=== PATIENT | male | born 1990 | race Caucasian/White ===

== ENCOUNTER 2019-03-12 13:04 | Emergency (ER) | payer SELFPAY ==
[2019-03-12 13:16] VITALS: BP 130/95; PULSE 70; RESP 16; TEMP 37.1; O2SAT 99
--- NOTE | 2019-03-12 13:52 | ED.GENADUL_ITS ---
Discharge Plan Disposition Patient Disposition: HOME Condition: Improving Discharge Details Chief Complaint: Headache Clinical Impression: Headache Primary Care Provider: None,None ED Provider: Stanley Shanks Home Meds and New Rx's Prescriptions: No Action ibuprofen 600 MG tablet 600 mg PO QID PRN (Reason: PAIN) Qty: 40 RF: 0 Discharge Instructions Instructions: General Headache (ED) Additional Instructions: Please purchase [id number] Excedrin Migraine headache medication and take as directed on package. Please stay well-hydrated and you may also take Benadry l 50 mg (2 tablets) half hour before bed to aid with sleep. Return immediately to the emergency department if you develop a fever, neck pain, worsening symptoms or any further concerns. Stand Alone Forms: Work Release Referrals: [facility] Emergency Dept. [Outside] (As needed for reassessment or if not improved) Discharge Data Discharge Date/Time-TO BE ENTERED AT DEPARTURE: 03/12/19 15:10 Medical Decision Making Patient presenting to the emergency department for chief complaint of headache. Patient states that this started on and was not a sudden onset but more a gradual increase of headache. Patient does state that he has had similar headaches like this in the past but none that have lasted this long. Patient denies any injury or trauma, fever chills, or focal neurological deficits. Physical exam is reassuring showing no acute abnormalities on exam and otherwise healthy stable patient with no acute signs of distress. Plan on giving IV fluids, ketorolac, Benadryl and Compazine and reassessing. Patient was reassessed after completion of treatment and stated significant improvement of symptoms and that he wants to go home now. Patient again has no focal neurological deficits and no red flag warning signs so I feel that this is appropriate. Return precautions were discussed. After discussion of diagnosis and plan of care patient has no further needs, questions, or concerns and states clear understanding to return to the emergency department for any worsening symptoms. HPI General Mode of arrival: ambulatory . Date/Time Provider Initiated Documentation: 03/12/19 13:17 . Limitations to Documentation: no limitations . Information obtained by: patient and RN notes reviewed . History of Present Illness 28 year old M presents to the emergency department with the chief complaint of headache, described as similar to prior episodes, with intensity rated at >10. Quality is described as aching and sharp, and is localized to the head. Patient reports no radiation. Patient started experiencing this day(s) (4) and it has been constant. No relieving factors improve symptom(s), No exacerbating factors reported . Patient did receive the following treatments prior to arrival, NSAID Related Data Home Medications Medication Instructions Recorded Confirmed ibuprofen 600 mg PO QID PRN #40 tab 04/09/15 03/12/19 Previous Rx's Medication Instructions Recorded ibuprofen 600 mg PO QID PRN #40 tab 04/09/15 Allergies Allergy/AdvReac Type Severity Reaction Status Date / Time Penicillins Allergy Unknown Unverified 03/12/19 13:21 General Stated Complaint: Headache LUKE: 3 Review of Systems Constitutional Denies body ache(s), Denies chills, Denies fever(s) and Reports headache(s) Eyes Denies change in vision and Reports photophobia ENT Denies vertigo, Reports headache(s), Denies nasal congestion and Denies sinus pain Cardiovascular Denies chest pain and Denies syncope Gastrointestinal Reports nausea and Reports vomiting Neurologic Reports as per HPI, Denies confusion, Denies vertigo, Denies syncope, Reports headache(s), Denies focal weakness and Denies sensory deficit Psychiatric Denies confusion [facility] Social History Smoking/Tobacco Use Status: Current every day Drug use: Occasionally Do you feel safe in your relationship?: Yes Exam Const General: cooperative, healthy appearing, no acute distress and well groomed Orientation: alert, awake and oriented x3 HENMT Head: normal to inspection Ears: hearing grossly normal bilaterally and TM's normal bilaterally Mouth: oral mucosae normal and moist mucous membranes Throat: posterior oropharynx normal Eyes Visual Bunch: normal visual bunch by confrontation Alignment and Position: alignment normal Periorbital: periorbital findings normal Eyelids: eyelids normal Sclera: sclerae normal Cornea: corneas normal Pupils: PERRL EOM: EOM intact bilaterally Neck Neck: normal visual inspection, full ROM, no lymphadenopathy and no meningeal signs Resp Effort & Inspection: normal respiratory effort and able to speak in complete sentences Auscultation: clear to auscultation bilaterally Cardio Rate: regular rate Rhythm: regular rhythm Heart Sounds: S1 normal and S2 normal Neuro General: alert, awake, oriented x3, gait normal, tone normal, moves all extremities, CN's II-XI intact bilaterally and not confused Cognition: normal cognition Speech: speech normal Motor: muscle tone normal throughout, strength 5/5 throughout, no pronator drift, no movement abnormalities noted and no fasciculations Sensory Exam: no sensory deficits noted Coordination: [id number] test normal, Romberg test normal, Does not sway with eyes open, rapid alternating movement UE normal and rapid alternating movement LE normal Course Vital Signs Temperature 37.1 C 03/12/19 13:16 Pulse 70 03/12/19 13:16 Respiratory Rate 16 03/12/19 13:16 Blood Pressure 130/95 H 03/12/19 13:16 Pulse Oximetry 99 03/12/19 13:16 Temperature 37.1 C 03/12/19 13:16 Temperature Source Temporal Artery Scan 03/12/19 13:16 Pulse 70 03/12/19 13:16 Respiratory Rate 16 03/12/19 13:16 Respiratory Effort 03/12/19 13:23 Blood Pressure 130/95 H 03/12/19 13:16 Blood Pressure Position Sitting 03/12/19 13:16 Pulse Oximetry 99 03/12/19 13:16 Oxygen Delivery Method Room Air 03/12/19 13:16 Oxygen Flow Rate 0 03/12/19 13:16 Pain Level 10 03/12/19 13:25
[2019-03-12] MEDS: Ketorolac 30 MG/ML VIAL IVP (14:04)
[2019-03-12] MEDS: Normal Saline 1,000 ML 1000 ML IV (14:04)
[2019-03-12] MEDS: diphenhydrAMINE 50 MG/ML VIAL 25 MG IVP (14:05)
[2019-03-12] MEDS: Prochlorperazine 10 MG/2 ML VIAL IVP (14:06)
[2019-03-12 14:37] VITALS: BP 126/74; PULSE 57; RESP 16; TEMP 36.7; O2SAT 100
== END 2019-03-12 15:10 | disposition home or self-care (01) ==
PROVIDERS: Emergency Provider Nurse Practitioner Family
DX: R51 Headache (principal)
CPT/HCPCS: 96361; 96374; 96375; 99284; J0780; J1200; J1885

== ENCOUNTER 2020-06-04 15:25 | Outpatient (REF) | payer OTHER, SELFPAY ==
[2020-06-07 14:30] LABS: SARS-CoV-2 RNA Undetected (Undetected); SARS-CoV-2 Specimen Source Nasopharynx
== END 2020-06-04 15:45 ==
LOC: NCHCN 15:25
PROVIDERS: PCP Nurse Practitioner Family; Visit Provider Nurse Practitioner Family
DX: R05 Cough (principal)
CPT/HCPCS: U0003

== ENCOUNTER 2023-10-05 17:25 | Emergency (ER) | payer MEDICAID, SELFPAY ==
[2023-10-05 17:25] VITALS: BP 146/95; PULSE 70; RESP 20; TEMP 36.7; O2SAT 99
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
[2023-10-05 17:57] LABS: Abs Immature Grans 0.09 10^3/uL (0.0-0.06); Absolute Basophil Count 0.07 10^3/uL (0.0-0.2); Absolute Eosinophil Count 0.15 10^3/uL (0.0-0.7); Absolute Lymphocyte Count 1.92 10^3/uL (1.2-3.4); Absolute Monocyte Count 0.88 10^3/uL (0.1-0.8); Absolute Neutrophil Count 10.68 10^3/uL (1.2-6.7); Basophils % 0.5; Eosinophils % 1.1; HCT 46.4 % (40.0-50.0); HGB 16.2 g/dL (13.5-17.5); Immature Grans % 0.7; Lymphocytes % 13.9; MCH 29.2 pg (27.0-33.0); MCHC 34.9 % (32.0-36.0); MCV 84 fL (80-95); MPV 10.6 fL (8.0-11.0); Monocytes % 6.4; Neutrophils % 77.4; Platelet Count 214 10^3/uL (130-400); RBC 5.55 10^6/uL (4.36-5.78); RDW 12.1 % (11.8-14.1)
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
[2023-10-05 18:05] LABS: INR 1.1 (0.9-1.1); PTT Activated 28.6 sec (23.6-32.8)
[2023-10-05] MEDS: Ondansetron 4 MG/2 ML VIAL IVP (18:05)
[2023-10-05] MEDS: Normal Saline 1,000 ML 1000 ML IV (18:06)
[2023-10-05] MEDS: MORPHine 10 MG/ML VIAL 5 MG IVP (18:08)
[2023-10-05 18:09] LABS: ALT 25 U/L (16-63); AST 20 U/L (15-37); Albumin 4.2 g/dL (3.4-5.0); Alkaline Phosphatase 74 U/L (46-116); Amylase 65 U/L (25-115); Anion Gap 10.5 mmol/L (3-11); BUN 15 mg/dL (7-18); Bilirubin, Total 0.3 mg/dL (0.2-1.0); CO2 25.5 mmol/L (21.0-32.0); Chloride 102 mmol/L (98-107); Estimated GFR 102.55 (mL/min/1.73m2); Glucose 88 mg/dL (74-106); Lipase 32 U/L (16-77); Magnesium 1.8 mg/dL (1.8-2.4); Potassium 3.6 mmol/L (3.5-5.1); Sodium 138 mmol/L (136-145); Total Protein 7.8 g/dL (6.4-8.2); Troponin I < 50 ng/L (<or=60)
[2023-10-05 18:11] LABS: ETHANOL BLOOD < 3.0 mg/dL (<10)
[2023-10-05] MEDS: Normal Saline - Diluent 50 ML VIAL IJ (18:23)
[2023-10-05] MEDS: Normal Saline Flush 10 ML SYR IVP (18:25)
[2023-10-05 18:31] LABS: *AMPHETAMINES SCREEN URINE Negative (Negative); *BARBITURATES SCREEN URINE Negative (Negative); *BENZODIAZEPINES SCREEN URINE Negative (Negative); Cannabinoids THC Positive (Negative); Cocaine Screen,Urine Positive (Negative); METHADONE URINE SCREEN Positive (Negative); OPIATES URINE SCREEN Negative (Negative)
[2023-10-05 18:34] LABS: Tricyclic Antidepressants Negative (Negative)
[2023-10-05] MEDS: Omnipaque 350 MG/ML 100 ML BTL IJ (18:42)
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
== END 2023-10-05 20:28 | disposition home or self-care (01) ==
PROVIDERS: Emergency Provider Physician Assistant; PCP Nurse Practitioner Family
DX: S00.81XA Abrasion of other part of head, initial encounter (principal); S06.0X0A Concussion without loss of consciousness, initial encounter; R16.0 Hepatomegaly, not elsewhere classified; V43.62XA Car passenger injured in collision with other type car in traffic accident, initial encounter
CPT/HCPCS: 74177; 80053; 80307; 83690; 86850; 86900; 86901; 96361; 96374; 96375; 99285; 70450; 70486; 71260; 72125; 80320; 82150; 83735; 84484; 85025; 85610; 85730; 99284; J2270; J2405; J3490

== ENCOUNTER 2024-01-12 16:24 | Outpatient (REF) | payer MEDICAID, SELFPAY ==
[2024-01-12 21:35] LABS: Abs Immature Grans 0.06 10^3/uL (0.0-0.06); Absolute Basophil Count 0.05 10^3/uL (0.0-0.2); Absolute Eosinophil Count 0.29 10^3/uL (0.0-0.7); Absolute Lymphocyte Count 3.33 10^3/uL (1.2-3.4); Absolute Monocyte Count 0.54 10^3/uL (0.1-0.8); Basophils % 0.5; Eosinophils % 3.1; HCT 42.7 % (40.0-50.0); Immature Grans % 0.6; Lymphocytes % 35.9; MCHC 35.1 % (32.0-36.0); MCV 83 fL (80-95); Monocytes % 5.8; Neutrophils % 54.1; Platelet Count 193 10^3/uL (130-400); RBC 5.17 10^6/uL (4.36-5.78); RDW 12.6 % (11.8-14.1); RDW-SD 38.5 fL; WBC 9.27 10^3/uL (4.4-10.8)
[2024-01-12 21:46] LABS: ALT 23 U/L (16-63); AST 21 U/L (15-37); Albumin 4.2 g/dL (3.4-5.0); Alkaline Phosphatase 74 U/L (46-116); BUN 13 mg/dL (7-18); Bilirubin, Total 0.2 mg/dL (0.2-1.0); Calcium 8.2 mg/dL (8.5-10.1); Chloride 107 mmol/L (98-107); Estimated GFR 102.55 (mL/min/1.73m2); Glucose 81 mg/dL (74-106); Potassium 3.8 mmol/L (3.5-5.1); Sodium 144 mmol/L (136-145); Total Protein 7.2 g/dL (6.4-8.2)
== END 2024-01-12 16:25 | disposition home or self-care (01) ==
LOC: LBN 16:24
PROVIDERS: Visit Provider Physician Assistant
DX: R56.9 Unspecified convulsions (principal); Z79.899 Other long term (current) drug therapy
CPT/HCPCS: 80053; 83735; 85025

== ENCOUNTER 2024-12-05 14:41 | Emergency (ER) | payer MEDICAID, SELFPAY ==
[2024-12-05 14:43] VITALS: BP 149/85; PULSE 100; RESP 14; TEMP 36.7; O2SAT 98
[2024-12-05 14:45] VITALS: BP 149/85; PULSE 100; RESP 14; TEMP 36.7; O2SAT 98
[2024-12-05] MEDS: Amoxicillin 875/Clav. 125 TAB PO (15:10)
--- NOTE | 2024-12-05 15:37 | ED.GENADUL_ITS ---
Discharge Plan Disposition Patient Disposition: Home Condition: Stable Discharge Details Clinical Impression: Abscess, dental Primary Care Provider: Unknown,Unknown ED Provider: Delaney Dhaliwal Home Meds and New Rx's Prescriptions: New amoxicillin-pot clavulanate 875-125 mg tablet 1 tab PO BID 9 Days Qty: 18 0RF No Action levetiracetam [Keppra] 500 mg tablet 500 mg PO Q12H Qty: 60 1RF methadone 10 mg/mL syringe 90 mg PO DAILY ibuprofen 600 MG tablet 600 mg PO QID PRN (Reason: PAIN) Qty: 40 0RF Discharge Instructions Instructions: Tooth Abscess (DC) Additional Instructions: You were seen in the emergency department today for evaluation of a tooth abscess, which was drained. You were started on antibiotics and need to follow- up at your dental appointment which is scheduled. Reasons to come to the emergency department sooner include fever or chills, inability to open your mouth, swallow, or difficulty breathing, or. Please take all the antibiotics until they are gone, even if you start to feel better. Thank you for allowing us to be part of your care. HPI General Mode of arrival: ambulatory . Date/Time Provider Initiated Documentation: 12/05/24 14:50 . Limitations to Documentation: no limitations . Information obtained by: patient, family and old records reviewed . HPI Narrative: HPI: This is a 34-year-old male patient presenting for evaluation of a dental abscess. The patient reports that for the last 2 days he has noted some swelling and pain in the area of his right upper back molar. He has a known broken tooth in that region, and is scheduled with his dentist in a week and a half to have the tooth treated. He states that he has noted swelling in that area and feels tenderness in the face and lymph nodes on that side, and even had some ear pain today. He has not had a fever, has been able to eat and drink, and states he does not have any other complaints at this time Exam: Gen: Awake and alert, in no apparent distress HEENT: Non-icteric sclera, full EOMs without entrapment or pain. No facial asymmetry appreciated. The patient does have a fluctuant periapical abscess of tooth #2, without spontaneous drainage. The patient has overall poor dentition with numerous dental caries. The pain is worsened with opening his mouth but he does not have any true trismus Neck: Supple. The patient does have some tender submandibular mild lymphadenopathy, full range of motion of the neck Lungs: No apparent respiratory distress, normal respiratory effort. CV: Appears well perfused Abdomen: Non-distended MSK: Moves 4 extremities without apparent limitation in ROM Skin: Visualized skin without rashes, cyanosis. Neuro: Normal Gait, no obvious focal deficits or facial asymmetry. Speaks in full, clear sentences. Psych: Appropriate for situation. MDM: This is a 34-year-old male patient presenting for evaluation of a dental abscess. My differential includes but is not limited to periapical abscess, dental carry disease, I certainly considered deep space infection including RPA, [employer], deep space abscess, and considered systemic infection such as bacteremia or sepsis, though reassuringly this patient has had a brief duration of symptoms, has not identified abscess and does not have any hemodynamic instability or fever. The patient has a documented history of allergy to penicillin, which was reported to be childhood and he does not recall any anaphylactic reactions, is not sure if he got a rash. For this reason I will give him a dose of Augmentin and observe him in the emergency department to ensure no reactions. ED Course: The dental abscess was drained successfully as noted below, patient tolerated the procedure well and did not have any adverse events or allergic reactions to the Augmentin which was provided. At this time I do not see an indication to pursue advanced imaging. I provided the patient with a 10-day course of Augmentin and he will reach out to his dental providers to discuss his upcoming appointments and reevaluation. At this time, the patient has had a full medical evaluation and is safe for discharge to home. They are hemodynamically stable, ambulatory, and tolerating PO. They are understanding of the follow-up plan and return precautions. They left our facility without incident. Delaney Dhaliwal MD Related Data Home Medications ?Medication ?Instructions ?Recorded ?Confirmed ibuprofen 600 mg tablet 600 mg PO QID PRN PAIN #40 tabs 04/09/15 12/05/24 methadone 10 mg/mL oral syringe 90 mg PO DAILY 12/22/22 12/05/24 (FOR ORAL USE ONLY) levetiracetam 500 mg tablet 500 mg PO Q12H #60 tabs 01/12/24 12/05/24 (Keppra) amoxicillin 875 mg-potassium 1 tab PO BID 9 days #18 tabs 12/05/24 clavulanate 125 mg tablet Previous Rx's ?Medication ?Instructions ?Recorded ibuprofen 600 mg tablet 600 mg PO QID PRN PAIN #40 tabs 04/09/15 levetiracetam 500 mg tablet 500 mg PO Q12H #60 tabs 01/12/24 (Keppra) amoxicillin 875 mg-potassium 1 tab PO BID 9 days #18 tabs 12/05/24 clavulanate 125 mg tablet Allergies Allergy/AdvReac Type Severity Reaction Status Date / Time Penicillins Allergy Unknown Swelling/Ed Unverified 12/05/24 14:45 kamryn General Stated Complaint: DentalOral LUKE: 4 Course Vital Signs Vital signs: Vital Signs Temperature 36.7 C 12/05/24 14:43 Pulse 100 H 12/05/24 14:43 Respiratory Rate 14 12/05/24 14:43 Blood Pressure 149/85 H 12/05/24 14:43 Pulse Oximetry 98 12/05/24 14:43 Temperature 36.7 C 12/05/24 14:45 Temperature Source Temporal Artery Scan 12/05/24 14:45 Pulse 100 H 12/05/24 14:45 Respiratory Rate 14 12/05/24 14:45 Blood Pressure 149/85 H 12/05/24 14:45 Blood Pressure Position Sitting 12/05/24 14:45 Pulse Oximetry 98 12/05/24 14:45 Oxygen Delivery Method Room Air 12/05/24 14:45 Oxygen Flow Rate 0 12/05/24 14:45 Pain Level 10 12/05/24 14:49 Procedure Abscess Drainage Date of Procedure: 12/05/24 Time of Procedure: 14:45 Provider that performed the procedure: Delaney Dhaliwal Standard Time Out Performed: No Patient Consented: Verbally Complications: None Procedure Description Note: Dental abscess of tooth #2, fluctuant to palpation, was anesthetized using 0.25 mL 2% lidocaine with epinephrine. A stab incision was made with an 11 blade scalpel, with expression of a moderate amount of purulent material. This was suctioned, patient maintained his own airway and managing secretions well and suffered no immediate complications during this procedure. Medical Decision Making Quality:SDOH Health Related Social Needs: No Data to Display PFSH All Active Problems (Updated 12/05/24 @ 15:37 by Delaney Dhaliwal MD) Abscess, dental (Acute) Varicocele (Acute) Anxiety (Chronic) Medical History Narcotic drug use Social History Smoking/Tobacco Use Status: Current every day Tobacco Type: cigarettes Smoking risk assessment performed?: Yes Alcohol Intake: current Alcohol Intake frequency: holidays/special occasions only Drug use: Occasionally Substance use type: marijuana Do you feel safe in your relationship?: Yes POCUS Exam (ED) Limited Soft Tissue Exam PROVIDER THAT PERFORMED THE STUDY: Delaney Dhaliwal
[2024-12-05] MEDS: Amox. 875/Clav. 125, 2 TABS/BTL 1 TAB PO (15:49)
== END 2024-12-05 15:55 | disposition home or self-care (01) ==
LOC: ER 16:21
PROVIDERS: Emergency Provider Emergency Medicine
DX: R68.84 Jaw pain (principal); K04.7 Periapical abscess without sinus
CPT/HCPCS: 41800; J2004